=== PATIENT | female | born 1965 | race Caucasian/White ===

== ENCOUNTER 2018-03-06 14:30 | Emergency (ER) | payer MEDICARE, MEDICAID ==
[~2018-03-06] VITALS: Ht 152.4 cm; Wt 95.0 kg
[~2018-03-06 14:30] MED LIST: ALEVE220 MG OR; ATIVAN1 MG OR; AUGMENTIN500TAB PO; CITALOPRAM HYDR20 MG PO; CLONAZEPAM1 MG PO; CYCLOBENZAPR5 MG PO; CYCLOBENZAPRINE5 MG PO; EFFEXOR XR75 MG PO; EFFEXOR25 MG OR; EFFEXOR50 M1 OR; EFFEXOR75 MG OR; FLEXERIL10 MG PO; KLONOPIN1 MG OR; LEXAPRO20 MG OR; LIPITOR40 M1 PO; MELOXICAM15 MG PO; MOBIC15 MG PO; MORPHINE SUL30 M3 PO; MORPHINE SULFAT30 M2 PO; NAPROSYN500 MG OR; NAPROSYN500 MG PO; NAPROXEN500 MG PO; OXYCODONE HCL15 MG PO; PREMARIN0.3 MG PO; TRAMADOL HCL50 MG OR; TRAMADOL HCL50 MG PO; ULTRAM50 MG OR; VENLAFAXINE HCL75 M2 PO
[2018-03-06] MEDS ORDERED: TORADOL PO (15:33)
[2018-03-06] MEDS ORDERED: AUGMENTIN500TAB PO (15:33)
[2018-03-06 15:45] VITALS: BP 125/82
== END 2018-03-06 15:45 | disposition home or self-care (01) ==
LOC: ED 14:30
DX: S61.431A Puncture wound without foreign body of right hand, initial encounter (principal); S60.414A Abrasion of right ring finger, initial encounter; W55.01XA Bitten by cat, initial encounter; Y93.K9 Activity, other involving animal care; Y92.007 Garden or yard of unspecified non-institutional (private) residence as the place of occurrence of the external cause

== ENCOUNTER 2021-01-06 06:29 | Day surgery (SDC) | payer MEDICARE, MEDICAID ==
[~2021-01-06] VITALS: Ht 152.4 cm; Wt 89.4 kg
[~2021-01-06 06:29] MED LIST changes: +ALLERGY RELF10 M3 PO; +LEVOTHYROXIN25 MC1 PO; +MORPHINE SULFAT60 M1 PO; +TORADOL PO
[2021-01-06 09:19] VITALS: BP 108/63
[2021-01-19] MEDS ORDERED: MORPHINE SULFAT60 M1 PO (16:51)
[2021-02-23] MEDS ORDERED: MORPHINE SULFAT30 M2 PO (11:09)
[2021-03-18] MEDS ORDERED: MORPHINE SUL30 M3 PO (12:09)
[2021-03-18] MEDS ORDERED: MS CONTIN30 MG PO (13:20)
== END 2021-01-06 09:30 | disposition home or self-care (01) ==
LOC: ORM 06:29
PROVIDERS: ATTEND Anesthesiology Pain Medicine
DX: M46.1 Sacroiliitis, not elsewhere classified (principal)

== ENCOUNTER 2021-02-03 05:50 | Day surgery (SDC) | payer MEDICARE, MEDICAID ==
[~2021-02-03] VITALS: Ht 152.4 cm; Wt 85.7 kg
[2021-02-03] MEDS ORDERED: VITAMIN D5000 UNIT PO (06:20)
[2021-02-03 07:55] VITALS: BP 110/78
[2021-02-23] MEDS ORDERED: MORPHINE SULFAT30 M2 PO (11:09)
[2021-03-18] MEDS ORDERED: MORPHINE SUL30 M3 PO (12:09)
[2021-03-18] MEDS ORDERED: MS CONTIN30 MG PO (13:20)
== END 2021-02-03 08:10 | disposition home or self-care (01) ==
LOC: ORM 05:50
PROVIDERS: ATTEND Anesthesiology Pain Medicine
DX: M54.5 Low back pain (principal); M46.1 Sacroiliitis, not elsewhere classified

== ENCOUNTER 2021-03-17 05:49 | Day surgery (SDC) | payer MEDICARE, MEDICAID ==
[~2021-03-17] VITALS: Ht 152.4 cm; Wt 83.5 kg
[~2021-03-17 05:49] MED LIST changes: +VITAMIN D5000 UNIT PO
[2021-03-17 07:47] VITALS: BP 111/79
[2021-03-17] MEDS ORDERED: MORPHINE SULFAT30 M2 PO ×2 (08:17→08:18)
[2021-03-17] MEDS ORDERED: MORPHINE SUL30 M3 PO (08:28)
[2021-03-18] MEDS ORDERED: MORPHINE SUL30 M3 PO (12:09)
[2021-03-18] MEDS ORDERED: MS CONTIN30 MG PO (13:20)
== END 2021-03-17 08:32 | disposition home or self-care (01) ==
LOC: ORM 05:49
PROVIDERS: ATTEND Anesthesiology Pain Medicine
DX: M17.0 Bilateral primary osteoarthritis of knee (principal)
CPT/HCPCS: J7325

== ENCOUNTER → 2021-03-31 | Day surgery (SDC) | payer MEDICARE, MEDICAID ==
[~2021-03-31] VITALS: Ht 152.4 cm; Wt 83.0 kg
[~2021-03-31] MED LIST changes: +ADDERALL10 MG PO; +BAYER ASPIRIN E81 MG PO; +MEDDOSEPAK PO; +MS CONTIN30 MG PO
[2021-03-31 08:16] VITALS: BP 97/66
== END ==
LOC: ORM 05:50
PROVIDERS: ATTEND Anesthesiology Pain Medicine
DX: M17.0 Bilateral primary osteoarthritis of knee (principal); M25.562 Pain in left knee; M25.561 Pain in right knee
CPT/HCPCS: J7325

== ENCOUNTER 2021-04-14 06:29 | Day surgery (SDC) | payer MEDICARE, MEDICAID ==
[~2021-04-14] VITALS: Ht 152.4 cm; Wt 86.2 kg
[~2021-04-14 06:29] MED LIST changes: -ADDERALL10 MG PO; -BAYER ASPIRIN E81 MG PO; -MEDDOSEPAK PO
[2021-04-14 07:52] VITALS: BP 96/60
[2021-04-14] MEDS ORDERED: MS CONTIN30 MG PO (08:15)
== END 2021-04-14 08:38 | disposition home or self-care (01) ==
LOC: ORM 06:29
PROVIDERS: ATTEND Anesthesiology Pain Medicine
DX: M25.562 Pain in left knee (principal); M25.561 Pain in right knee; M17.0 Bilateral primary osteoarthritis of knee
CPT/HCPCS: J7325

== ENCOUNTER 2021-12-08 09:16 | Day surgery (SDC) | payer MEDICARE, MEDICAID ==
[~2021-12-08] VITALS: Ht 152.4 cm; Wt 86.2 kg
[~2021-12-08 09:16] MED LIST changes: +ADDERALL10 MG PO; +BAYER ASPIRIN E81 MG PO; +MEDDOSEPAK PO
[2021-12-08 11:25] VITALS: BP 133/88
== END 2021-12-08 11:37 | disposition home or self-care (01) ==
LOC: ORM 09:16
PROVIDERS: ATTEND Physical Medicine & Rehabilitation Pain Medicine
DX: M70.62 Trochanteric bursitis, left hip (principal)
CPT/HCPCS: Q9967